=== PATIENT | female | born 1950 | race Caucasian/White ===

== ENCOUNTER 2023-03-15 00:50 | Emergency (ER) | payer OTHER, SELFPAY ==
[2023-03-15 01:04] VITALS: BP 193/87; PULSE 90; RESP 22; TEMP 36.4; O2SAT 98; BMI 34.8
--- NOTE | 2023-03-15 01:58 | DI.RAD.S_ITS ---
PROCEDURE: XR KNEE RT 3V INDICATIONS: Increased pain, difficulty ambulating, previous partial knee TECHNIQUE: 3 views of the knee were acquired. COMPARISON: [facility], CR, XR KNEE BILATERAL STANDING UP, 11/19/2015, 12:57. [facility], CR, KNEE 3V LEFT, 11/08/2014, 14:25. FINDINGS: Bones: Medial compartment unicondylar arthroplasty is in place. No displaced fracture or dislocation. On patellar sunrise view, there is narrowing of the lateral joint facet. Soft tissues: [id number] joint effusion is present. IMPRESSION: Medial knee arthroplasty appears unremarkable on radiography evaluation. There is a [id number] joint effusion. If there is high concern, consider further cross-sectional or nuclear medicine bone scan imaging. Degenerative changes of the patellofemoral joint on sunrise view, with joint space narrowing in the lateral facet. Dictated by: Duane Orta M.D. on 03/15/2023 at 8:02 Approved by: Duane Orta M.D. on 03/15/2023 at 8:04
--- NOTE | 2023-03-15 02:44 | ED.EXTPRO ---
HPI - Extremity Problem General Chief complaint: Extremity Problem,Nontraumatic Stated complaint: rt leg pain 3 days Time Seen by Provider: 03/15/23 01:19 Source: patient Mode of arrival: Ambulatory History of Present Illness HPI Narrative: Patient is 73-year-old female history of arthritis presents today with right knee pain. She says she was going up or down some stairs 2 days ago and hurt both knees crack. She is having increasing pain in the right knee she is been taking some ibuprofen without significant relief. She is able to ambulate but is using a cane. No other injury. Related Data Home Medications Medication Instructions Recorded Confirmed CA PANTOTHENATE/FOLIC ACID/VIT 1 tab PO QDAY ##0 09/21/12 (MULTIVITAMIN) Previous Rx's Medication Instructions Recorded hydrocodone 5 mg-acetaminophen 325 1 tab PO Q6H PRN pain #10 tabs 03/15/23 mg tablet ondansetron 4 mg disintegrating 4 mg PO Q8H PRN nausea and 03/15/23 tablet vomiting #10 tabs Allergies Allergy/AdvReac Type Severity Reaction Status Date / Time ketamine [KETAMINE] Allergy Severe WOKE UP Unverified 02/01/18 12:23 DURING SURGERY Penicillins [PENICILLINS] Allergy Severe CLAMY, Unverified 02/01/18 12:23 SWEATY, SOB, DARK TUNNEL, LIKE I WAS GOING TO acetaminophen [From VICODIN] Allergy Intermediate NAUSEA Unverified 02/01/18 12:23 amoxicillin [AMOXICILLIN] Allergy Intermediate NAUSEA AND Unverified 02/01/18 12:23 VOMITING hydrocodone [From VICODIN] Allergy Intermediate NAUSEA Unverified 02/01/18 12:23 Review of Systems Review of Systems ROS Unobtainable: All systems reviewed & are unremarkable except as noted in HPI and below Patient History Surgical History History of knee replacement History of third molar tooth extraction Social History Smoking Status: Former smoker Smoking Status: Former smoker alcohol intake frequency: 0-2 drinks per day Substance Use Type: does not use Exam Initial Vital Signs Initial Vital Signs: Vital Signs Temperature 97.6 F 03/15/23 01:04 Pulse Rate 90 03/15/23 01:04 Respiratory Rate 22 03/15/23 01:04 Blood Pressure 193/87 H 03/15/23 01:04 Pulse Oximetry 98 03/15/23 01:04 Oxygen Delivery Method Room Air 03/15/23 01:04 GENERAL: Alert pleasant well-appearing 73-year-old female CARDIOVASCULAR: peripheral pulses in tact, cap refill <2 sec RESPIRATORY: No respiratory distress, speaks in full sentences without difficulty EXTREMITIES: Normal range of motion, no clubbing or edema. Neurovascularly intact Right knee is stable mildly swollen distal pedal pulse strong and intact NEUROLOGICAL: Cranial nerves II through XII grossly intact. Normal gait and speech. SKIN: Warm, dry, no petechiae, no rashes or lesions. Course Orders Ordered: ED Orders 03/15/23 01:58 XR knee RT 3V Stat Discontinued Medications Hydrocodone Bitart/Acetaminophen (Hydrocodone/Acet 5/325 Prepack) 1 bottle MISC SEEINSTR ONE Stop: 03/15/23 02:49 Last Admin: 03/15/23 03:00 Dose: 1 bottle Documented By: MAGALI Ketorolac Tromethamine (Ketorolac 30 Mg/Ml Vial) 30 mg IM NOW ONE Stop: 03/15/23 02:35 Last Admin: 03/15/23 02:52 Dose: 30 mg Documented By: MAGALI Ondansetron HCl (Ondansetron 4 Mg Odt Prepack) 1 bottle MISC SEEINSTR ONE Stop: 03/15/23 02:52 Last Admin: 03/15/23 03:00 Dose: 1 bottle Documented By: MAGALI Vital Signs Vital signs: Vital Signs - 8 hr 03/15/23 01:04 Temperature 97.6 F Pulse Rate 90 Respiratory Rate 22 Blood Pressure 193/87 H Pulse Oximetry 98 Oxygen Delivery Method Room Air MDM - Extremity (Nontraumatic) Imaging Data Extremity x-ray #1: Radiologist's Impression: Preliminary report no acute findings a unicompartmental medial joint space prosthesis. Degenerative changes in the patellofemoral joint MDM Narrative Medical decision making narrative: Patient is a 73-year-old female history of arthritis with juan francisco knee arthropathy presenting today with increasing pain and swelling. She is given a shot of Toradol here in the ED x-ray is negative. She is ambulatory on it she is afebrile low concern for joint. She is given hydrocodone here as well she reports that she just needs some anti nausea medication which she is given. No need for any further workup at point. History is consistent with arthritis which is what x-ray shows. Discharge Plan Departure Patient Disposition: Home Clinical Impression: Arthritis Instructions: DI for Osteoarthritis Activity Restrictions/Additional Instructions: *You have been diagnosed with osteoarthritis *What to do: At this time I do recommend that you wear a knee immobilizer, use crutches or cane needed elevate and ice *Continue to take medications as directed [place] 1 tablet every 6 hours if needed for severe pain *Follow up with your primary care provider in 2-3 days or call [phone] *Return to ER if you should have increasing pain swelling inability walk [or] any new, worsening or concerning symptoms CONTROLLED SUBSTANCE DISCHARGE (Narcotoic/benzodiazepine/Flexeril/Phenergan) 1. You have been prescribed narcotic medications, it does have acetaminophen/Tylenol/paracetamol in it, DO NOT TAKE MORE THAN 4,00mg in 24 hours of Tylenol. TRAMADOL DOES NOT CONTAIN TYLENOL 2. Please understand that we cannot provide further refills of narcotics, benzodiazepines or controlled substances through the ED and her pain management will need to be through your provider. 3. While on these medications you cannot drive or operate heavy machinery. 4. You cannot sign legal documents or perform any duties such as this. 5. As long as you're taking opiate pain medications he should also be taking a stool softener such as Colace, Dulcolax, MiraLAX or prune juice, to help avoid constipation. Prescriptions: New hydrocodone-acetaminophen 5-325 mg tablet 1 tab PO Q6H PRN (Reason: pain) Qty: 10 0RF ondansetron 4 mg tablet,disintegrating 4 mg PO Q8H PRN (Reason: nausea and vomiting) Qty: 10 0RF No Action CA PANTOTHENATE/FOLIC ACID/VIT (MULTIVITAMIN) 1 tab PO QDAY Qty: 0 Referrals: Yoly Guy PA-C [Primary Care Provider] - Stand Alone Forms: Patient Portal/API
[2023-03-15] MEDS: KETOROLAC 30 MG/ML VIAL IM (02:52)
[2023-03-15] MEDS: ONDANSETRON 4 MG ODT PREPACK 1 BOTTLE MISC (03:00)
[2023-03-15] MEDS: HYDROCODONE/ACET 5/325 PREPACK 1 BOTTLE MISC (03:00)
== END 2023-03-15 03:23 | disposition home or self-care (01) ==
PROVIDERS: Emergency Provider Emergency Medicine; Family Provider Physician Assistant; PCP Physician Assistant
DX: M17.0 Bilateral primary osteoarthritis of knee (principal)
CPT/HCPCS: 73562; 96372; 99283; J1885

== ENCOUNTER → 2025-03-04 15:08 | Outpatient (CLI) | payer OTHER, SELFPAY ==
--- NOTE | 2025-03-04 15:12 | DI.US.S_ITS ---
PROCEDURE: US PELVIC COMPLETE INDICATIONS: PAINLESS VAGINAL BLEEDING TECHNIQUE: Real-time scanning was performed of the pelvic organs, with image documentation. Additional endovaginal scanning was necessary due to incomplete visualization of the adnexal and endometrial structures by transabdominal scanning. COMPARISON: None. FINDINGS: Uterus: Uterus is anteverted and normal in size at 4.6 x 3.6 x 2.3 cm. The myometrium is homogeneous. The endometrium measures 4.0 mm combined thickness. Ovaries: Not seen bilaterally Other: No pathologic free abdominal or pelvic fluid. IMPRESSION: 1. Endometrial stripe measures 4 millimeter. No focal lesions seen in the uterus. 2. Nonvisualization of both ovaries. No adnexal mass seen. We strive to produce accurate, complete, and clear reports of imaging services. To assist us in improving patient care, this report was composed using standard report templates and voice recognition software. Therefore, it may contain abnormal punctuation, insertions and/or omissions. Occasional wrong-word or sound-alike substitutions may occur. Though we review the report and make efforts to correct it, we do recommend that the report be read carefully in proper context to recognize any text inaccuracies. Dictated by: Hilton Encarnacion M.D. on 03/04/2025 at 21:01 Approved by: Hilton Encarnacion M.D. on 03/04/2025 at 21:04
== END ==
PROVIDERS: Referring Provider Obstetrics & Gynecology; Visit Provider Family Medicine
DX: N93.9 Abnormal uterine and vaginal bleeding, unspecified (principal)
CPT/HCPCS: 76830; 76856

== ENCOUNTER 2025-04-11 06:07 | Day surgery (SDC) | payer OTHER, SELFPAY ==
[2025-04-03 12:47] VITALS: BMI 36.6
--- NOTE | 2025-04-11 | PATH_ITS ---
[facility] Accession Number: [id number] No. of containers..01 Tissue . 01 Material submitted: . endometrium - ENDOMETRIAL CURETTINGS . 01 Diagnosis: ENDOMETRIUM: Sparse sample composed of rare glandular strips suggestive of inactive endometrial gland and rare ectocervical squamous epithelium. See comment. [facility] 04/18/2025 0955 Local . 01 Comment: The sample is suboptimal for adequate evaluation of endometrium. If clinical concern for a worrisome lesion persists, additional sampling may be recommended. . 01 Electronically signed: . Anamika Curtis MD, Pathologist NPI- [id number] . 01 Gross description: . ENDOMETRIAL CURETTINGS: Received in formalin are minute fragments of mucoid and hemorrhagic material measuring 0.1 x 0.1 x 0.1 cm in aggregate. Submitted in toto in 1 cassette. /ERIKA 04/15/2025 1725 Local . 01 Pathologist provided ICD-10: N95.9 . 01 CPT . 245723 Performed at: [address] [facility] [id number], [place], [place] [id number] MD Dhruv Danielson MD Phone: [phone]
[2025-04-11 06:43] VITALS: BP 158/78; PULSE 78; RESP 16; TEMP 36.2; O2SAT 97; BMI 36.6
[2025-04-11] MEDS: LACTATED RINGERS 1,000 ML 42 ML IV (06:58)
--- NOTE | 2025-04-11 07:27 | PM.GYNHP.1 ---
History of Present Illness History of Present Illness Reason for admission: vaginal bleeding (Postmenopausal) Narrative: Karolina Almaraz is a 75 year old female with postmenopausal bleeding She presents for a D&C hysteroscopy [facility] Medical History (Updated 03/10/25 @ 21:24 by Jenelle Adams MD) Hypercholesterolemia Hypertension Surgical History History of third molar tooth extraction History of knee replacement Social History household members: spouse Smoking Status: Never smoker Meds Home Medications and Allergies Home Medications ?Medication ?Instructions ?Recorded ?Confirmed ?Type hydrocodone 5 mg-acetaminophen 325 1 tab PO Q6H PRN pain #10 tabs 03/15/23 Rx mg tablet ondansetron 4 mg disintegrating 4 mg PO Q8H PRN nausea and 03/15/23 Rx tablet vomiting #10 tabs rosuvastatin 10 mg tablet 10 mg PO 05/06/23 03/08/25 History valsartan 40 mg tablet 40 mg PO BID 03/08/25 04/11/25 History Allergies Allergy/AdvReac Type Severity Reaction Status Date / Time ketamine (KETAMINE) Allergy Severe WOKE UP Unverified 04/11/25 06:38 DURING SURGERY Penicillins (PENICILLINS) Allergy Severe CLAMY, Unverified 04/11/25 06:38 SWEATY, SOB, DARK TUNNEL, LIKE I WAS GOING TO acetaminophen (From VICODIN) Allergy Intermediate NAUSEA Unverified 04/11/25 06:38 amoxicillin (AMOXICILLIN) Allergy Intermediate NAUSEA AND Unverified 04/11/25 06:38 VOMITING hydrocodone (From VICODIN) Allergy Intermediate NAUSEA Unverified 04/11/25 06:38 Exam Vital Signs (past 8 hours): - 04/11/25 06:43 Temperature 97.2 F L Pulse Rate 78 Respiratory Rate 16 Blood Pressure 158/78 H Pulse Oximetry 97 Oxygen Delivery Method Room Air Oxygen Delivery Method Room Air Narrative Exam Narrative: HEENT: No thyromegaly, no anterior cervical or supraclavicular lymphadenopathy. Lungs:Clear to auscultation bilaterally, no wheezes. Cardiovascular: Regular rate and rhythm, no murmurs, rubs, or gallops. Abdomen: No scars. No hepatosplenomegaly. No masses palpable. External genitalia: Normal Vagina: Normal Cervix: Normal Bimanual exam: 5 Week size anteverted uterus. Mobile. Extremities: Well-healed scar. No edema Assessment & Plan Assessment & Plan narrative: Assessment: 75-year-old with postmenopausal bleeding Plan: D&C hysteroscopy The risks, benefits, and alternatives to the procedure were explained to the patient. The risks including bleeding, infection, and uterine perforation. She understands these risks and agrees to proceed. A full par Q was held and consent form was signed. Time-Based Coding :: [TOTAL MINUTES] spent with patient and on the chart (including review of chart, obtaining history, exam, reviewing outside data, placing orders, documenting exam and treatment plan, and counseling patient) on [DATE].
--- NOTE | 2025-04-11 07:29 | PM.PREOP ---
Pre-operative Note Interval Note History & Physical reviewed/Exam performed by Physician: Yes Changes to H&P: No H&P completed within 30 days and has changed as indicated here:: 04/11/25
--- NOTE | 2025-04-11 08:03 | SUR.OPER ---
Lithotomy on padded OR bed, head on pillow, arms secured on padded arm boards at <90 degrees abduction. Legs secured in padded yellow fins stirrups.
--- NOTE | 2025-04-11 08:11 | P.OP_ITS ---
Operative Date/Time/Diagnoses Date of procedure: 04/11/25 Time of procedure: 08:11 Pre-op diagnosis: Postmenopausal bleeding Post-op diagnosis: same Procedure & Clinicians Procedure: Procedures Operation Date: 04/11/25 07:45 <No data on this case meets the specified criteria> Indications: [employer] bleeding Surgeon: Jenelle Adams Anesthesia Type: General (LMA) Operative Notes Findings: 5 week size RV uterus Both fallopian tube ostia observed Some mild thickening of the endometrium posteriorly Closure Type: not applicable Specimen(s): endometrial curettings Applied: none Estimated blood loss (mL): 3 Blood products transfused: none Procedure in detail: After informed consent was obtained, the patient was taken to the operating room where she was placed in the dorsal supine position. After adequate LMA general anesthesia was achieved, she was placed in the dorsal lithotomy position, and prepped and draped in the usual sterile fashion. A time-out was performed. A bivalve speculum was placed into the vagina and a single-tooth tenaculum was placed on the anterior lip of the cervix. The cervical os was sequentially dilated until the MyoSure hysteroscope could pass easily into the endometrial cavity. Initial inspection of the cervical canal and uterine cavity showed both fallopian tube ostia were observed, and there was a slightly thickened posterior lining of the uterus in the lower uterine segment. No polyps or fibroids were visualized. The hysteroscope was removed. Sharp curettage was performed yielding a small amount of endometrial curettings. The instruments were removed from the uterus. The single-tooth tenaculum was removed from the anterior lip of the cervix. The bivalve speculum was removed from the vagina. Sponge, lap, and instrument counts were correct x2. The patient tolerated the procedure well, and was taken to PACU in stable condition. Complications: none Post-operative Condition: stable Disposition: PACU Plan for aftercare: Home after recovery
[2025-04-11 08:17] VITALS: BP 153/98; PULSE 78; RESP 16; TEMP 36.2; O2SAT 98
[2025-04-11 08:23] VITALS: BP 150/98; PULSE 76; RESP 16; O2SAT 98
== END 2025-04-11 08:38 | disposition home or self-care (01) ==
PROVIDERS: PCP Nurse Practitioner Family; Referring Provider Obstetrics & Gynecology; Visit Provider Obstetrics & Gynecology
PROC: 0UDB8ZZ Extraction of Endometrium, Via Natural or Artificial Opening Endoscopic (ICD-10-PCS; CPT 58558; principal; 2025-04-11 07:45)
DX: N95.0 Postmenopausal bleeding (principal)
CPT/HCPCS: 58558; J1885; J2250; J2405; J2704

== ENCOUNTER 2025-05-17 08:33 | Day surgery (SDC) | payer OTHER, SELFPAY ==
[2025-05-17 09:25] VITALS: BP 180/85; PULSE 87; RESP 16; TEMP 36.2; O2SAT 98
[2025-05-17] MEDS: LACTATED RINGERS 1,000 ML 42 ML IV (09:33)
--- NOTE | 2025-05-17 10:15 | P.HP_ITS ---
History of Present Illness History of Present Illness Date Patient Seen: 05/17/25 Time Patient Seen: 10:15 Chief complaint: SDC Narrative: Karolina is 75 year with an episode rectal bleeding in January. She was not had much rectal bleeding since then until she started her prep last night. [facility] Medical History (Updated 04/12/25 @ 13:48 by Umair Saab MD) Hypercholesterolemia Hypertension Surgical History History of third molar tooth extraction History of knee replacement Social History household members: spouse Smoking Status: Former smoker Meds Home Medications and Allergies Home Medications ?Medication ?Instructions ?Recorded ?Confirmed ?Type hydrocodone 5 mg-acetaminophen 325 1 tab PO Q6H PRN pa in #10 tabs 03/15/23 Rx mg tablet ondansetron 4 mg disintegrating 4 mg PO Q8H PRN nausea and 03/15/23 Rx tablet vomiting #10 tabs rosuvastatin 10 mg tablet 10 mg PO QPM 05/06/23 History valsartan 40 mg tablet 40 mg PO BID 03/08/25 History Allergies Allergy/AdvReac Type Severity Reaction Status Date / Time ketamine (KETAMINE) Allergy Severe WOKE UP Verified 05/17/25 09:23 DURING SURGERY Penicillins (PENICILLINS) Allergy Severe CLAMY, Verified 05/17/25 09:23 SWEATY, SOB, DARK TUNNEL, LIKE I WAS GOING TO amoxicillin (AMOXICILLIN) Allergy Intermediate NAUSEA AND Verified 05/17/25 09:23 VOMITING hydrocodone (From VICODIN) Allergy Intermediate NAUSEA Verified 05/17/25 09:23 Exam Vital Signs (past 8 hours): - 05/17/25 09:25 Temperature 97.2 F L Pulse Rate 87 Respiratory Rate 16 Blood Pressure 180/85 H Pulse Oximetry 98 Oxygen Delivery Method Room Air Oxygen Delivery Method Room Air Const General: healthy appearing Assessment & Plan Assessment and plan (1) Rectal bleeding: Status: Acute Plan Colonoscopy Time-Based Coding :: [TOTAL MINUTES] spent with patient and on the chart (including review of chart, obtaining history, exam, reviewing outside data, placing orders, documenting exam and treatment plan, and counseling patient) on [DATE]. [employer] Document charge(s): No
--- NOTE | 2025-05-17 10:16 | PM.OP.COLON ---
Operative Date/Time/Diagnoses Date of procedure: 05/17/25 Time of procedure: 10:48 Pre-op diagnosis: Rectal bleeding Post-op diagnosis: same Procedure & Clinicians Study performed: Colonoscopy Same procedure(s) as scheduled: Yes Surgeon: Umair Saab Anesthesia Type: MAC +/- Procedure Notes Procedure in detail: Surgeon: Umair Saab MD Anesthesia: Casie Morales CRNA Procedure: The patient was brought to the endoscopy suite, placed in left lateral decubitus position. The patient was connected to monitoring devices. A time-out was performed. Sedation was administered. Once the patient was adequately sedated, a digital rectal exam was performed and was normal. The scope was then inserted and advanced to the cecum where the appendiceal orifice was identified and photographed. The scope was then slowly withdrawn over greater than 6 minutes. The mucosa was thoroughly inspected. No abnormalities were identified. The scope was retroflexed in the rectum and some mild internal hemorrhoids were noted. The scope was straightened and removed. The patient was awakened and brought to recovery. Scope withdrawal time: 6 minutes Sedation time: 17 minutes EBL: 0 Findings: Normal colon Post-procedure Disposition: PACU
[2025-05-17 10:45] VITALS: BP 120/66; PULSE 71; RESP 16; TEMP 36.4; O2SAT 98
[2025-05-17 10:50] VITALS: BP 121/67; PULSE 69; RESP 18; O2SAT 94
[2025-05-17 10:55] VITALS: BP 172/91; PULSE 68; RESP 16; O2SAT 94
[2025-05-17 10:58] VITALS: BP 171/81; PULSE 70; TEMP 36.4; O2SAT 97
== END 2025-05-17 11:18 | disposition home or self-care (01) ==
PROVIDERS: PCP Nurse Practitioner Family; Referring Provider Nurse Practitioner Family; Visit Provider Surgery
PROC: 0DJD8ZZ Inspection of Lower Intestinal Tract, Via Natural or Artificial Opening Endoscopic (ICD-10-PCS; CPT 45378; principal; 2025-05-17 10:00)
DX: K62.5 Hemorrhage of anus and rectum (principal); Z87.891 Personal history of nicotine dependence; K64.8 Other hemorrhoids
CPT/HCPCS: 45378; J2704

== ENCOUNTER → 2025-09-23 14:06 | Outpatient (CLI) | payer OTHER, SELFPAY | PROVIDERS: PCP Family Medicine; Visit Provider Physician Assistant | DX: L02.91 Cutaneous abscess, unspecified (principal) | CPT/HCPCS: 87070; 87075; 87205 ==